=== PATIENT | female | born 1925 | race Caucasian/White ===

== ENCOUNTER 2016-08-17 12:26 | Emergency (ER) | payer MEDICARE, OTHER ==
--- NOTE | 2016-08-17 12:40 | ED Physician Documentation ---
General Adult - HISTORIAN Historian: patient, spouse - HPI Stated Complaint: R jaw subluxed Chief Complaint: General Adult Additional Information: Woke with right jaw subluxed this am. Happened previously when she was 19. No trauma known. Hurts when she tries to open her mouth. - ROS CONST: no problems - PAST HX Past History: hypertension (HLD) Surgeries/Procedures: none Allergies/Adverse Reactions: Allergies Allergy/AdvReac Type Severity Reaction Status Date / Time No Known Allergies Allergy Verified 08/17/16 12:34 Home Medications: Ambulatory Orders Medication Instructions Recorded Amlodipine Besylate [Amlodipine 5 mg PO DAILY 08/17/16 Besylate] Lovastatin [Lovastatin] 20 mg PO HS 08/17/16 Prednisone [Deltasone] 5 mg PO DAILY 08/17/16 - SOCIAL HX Smoking History: non-smoker - FAMILY HX Family History: No (no signif) - REVIEWED ASSESSMENTS Nursing Assessment Reviewed: Yes Vitals Reviewed: Yes Progress - Progress Progress: HISTORY: 89-year-old female with right-sided jaw pain, unable to open the mouth COMPARISON: None available. TECHNIQUE: 5 views of the mandible were performed. FINDINGS: No fracture is identified about the mandible. The mastoid air cells are clear. The nasal septum is slightly deviated to the right. 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 IMPRESSION: No evidence of fracture of the mandible. Consider follow-up facial bone CT for further evaluation. Electronically signed on Aug 17, 2016 1:51:43 PM CDT by: Bert Crockett Pt declined anesthetic/pain meds. Gentle downward traction over 2-3 minutes with complete mouth opening and closing. General Adult Physical Exam - PHYSICAL EXAM GENERAL APPEARANCE: mild distress EENT: eye inspection normal, other (incisor to incisor distance of 4-5 mm, with maximal nouth opening. No tenderness to palpation at TMJ's. ) NECK: normal inspection, supple RESPIRATORY: no resp distress RECTAL: deferred BACK: other (movements w/o pain) SKIN: warm/dry, normal color EXTREMITIES: normal range of motion (gait) NEURO: CN's nml as tested, motor nml, sensation nml, cognition normal Discharge Clincal Impression: TMJ (dislocation of temporomandibular joint) Qualifiers: Encounter type: initial encounter Qualified Code(s): S03.00XA - Dislocation of jaw, unspecified side, initial encounter Additional Instructions: Ice to the sore area for 30 minutes of each hour you are awake for the next 3 days. You could also use tylenol and ibuprofen for discomfort. Return to the ER with increased pain or diminished mouth opening. Home Medications: Ambulatory Orders Amlodipine Besylate [Amlodipine Besylate] 5 mg PO DAILY 08/17/16 Lovastatin [Lovastatin] 20 mg PO HS 08/17/16 Prednisone [Deltasone] 5 mg PO DAILY 08/17/16 Condition: Good Disposition: 01 HOME, SELF-CARE Decision to Admit: NO Decision Time: 14:17
[2016-08-17 14:38] VITALS: BP 126/76
--- NOTE | 2016-08-17 18:21 | Diagnostic Imaging Report ---
NITHIN BENNETT~ [facility] [address] [facility] [address] [address] ~ ~ ~ ~ Report Submission Date: Aug 17, 2016 1:51:43 PM CDT Patient ~ Study Name: HOMERO HARVEY ~ Date: Aug 17, 2016 1:04:48 PM CDT ~ Modality Type: CR Gender: F ~ Description: MANDIBLE/MASTOIDS,TMJ/SELLA T : [birth year] ~ Institution: [facility] Physician: NITHIN BENNETT ~ ~ ~ ~ HISTORY: 89-year-old female with right-sided jaw pain, unable to open the mouth COMPARISON: None available. TECHNIQUE: ~5 views of the mandible were performed. FINDINGS: ~No fracture is identified about the mandible. ~The mastoid air cells are clear. ~The nasal septum is slightly deviated to the right. 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 IMPRESSION: No evidence of fracture of the mandible. Consider follow-up facial bone CT for further evaluation. ~ Electronically signed on Aug 17, 2016 1:51:43 PM CDT by: Bert ENRIQUEZ
== END 2016-08-17 14:36 | disposition home or self-care (01) ==
LOC: ED 12:26
DX: S03.00XA Dislocation of jaw, unspecified side, initial encounter (principal); X58.XXXA Exposure to other specified factors, initial encounter; Y93.9 Activity, unspecified; Y99.9 Unspecified external cause status
CPT/HCPCS: 70100; 99283

== ENCOUNTER 2016-09-10 13:30 | Outpatient (CLI) | payer MEDICARE, OTHER | END 2016-09-10 13:32 | LOC: CARD 13:30 | PROVIDERS: ATTEND Internal Medicine Cardiovascular Disease | DX: I35.0 Nonrheumatic aortic (valve) stenosis (principal) | CPT/HCPCS: G0463 ==